=== PATIENT | female | born 1990 | race Two or more races ===

== ENCOUNTER 2024-07-11 13:51 | Outpatient (CLI) | payer MEDICAID, OTHER | END 2024-07-11 23:59 | disposition critical access hospital (66) | LOC: EMS 13:51 | DX: M54.2 Cervicalgia (principal); M54.50 Low back pain, unspecified; M79.604 Pain in right leg | CPT/HCPCS: A0425; A0427 ==

== ENCOUNTER 2024-07-11 14:31 | Emergency (ER) | payer MEDICAID, OTHER ==
--- NOTE | 2024-07-11 14:54 | ED Physician Documentation ---
History of Present Illness - Stated complaint Stated Complaint: BACK PX - Chief complaint Chief Complaint: Back Pain - Additonal information Additional information: 34-year-old female with known bulging disc presents emergency department via EMS for severe back pain. Patient says that she started new job at [employer] stop was not doing thing physically exertional but was having a hard time managing her pain which is what led her to call EMS. She says that she has been having urinary incontinence but she is able to control her urine enough to use a bedpan without any difficulty or incontinence here in the emergency department. She describes the urinary incontinence as an urgency sensation but she also reports that she was just recently diagnosed with pelvic inflammatory disease. She has no stool incontinence she says that she is able to feel sensation when she does need to void but sometimes she has a hard time controlling this. No fevers or chills no history of IV drug use no history of back surgery no recent fevers or chills. PD PAST MEDICAL HISTORY - Past Medical History Past Medical History: Yes Cardiovascular: None Respiratory: None Neuro: None Endocrine/Autoimmune: HyPOthyroidism GI: None CUSTODIAL MANAGER: None : None HEENT: None Psych: Depression Musculoskeletal: Chronic back pain Derm: None - Present Medications Home Medications: Ambulatory Orders Medication Instructions Recorded Confirmed methylPREDNISolone [Medrol Dose 1 each PO .PACKAGEINSTRUCTIONS 6 07/11/24 Pack] Days #1 each - Allergies Allergies/Adverse Reactions: Allergies Allergy/AdvReac Type Severity Reaction Status Date / Time amitriptyline AdvReac Unknown Verified 07/11/24 14:41 - Social History Does the pt smoke?: No Smoking Status: Never smoker Does the pt drink ETOH?: No Does the pt have substance abuse?: No - Immunizations Immunizations are current?: Yes - POLST Patient has POLST: No PD ED PE NORMAL - Vitals Vital signs reviewed: Yes - General General: Alert and oriented X 3, No acute distress, Well developed/nourished - HEENT HEENT: Atraumatic, PERRL, EOMI - Back Back: No CVA TTP - Derm Derm: Normal color, Warm and dry, No rash - Extremities Extremities: No edema, No calf tenderness / cord - Free text exam Free text exam: Neck and back are without deformity, external skin changes, or signs of trauma. Curvature of the cervical, thoracic, and lumbar spine are within normal limits. Bony features of the shoulders and hips are of equal height bilaterally. Pt is seen ambulating with a slight limp on the right lower extremity, she is able to get herself in and out of bed without difficulty. No tenderness noted on palpation of the spinous processes. Spinous processes are midline. Cervical, thoracic muscles are not tender and are without spasm. lumbar paraspinal tenderness to the right side. No discomfort is noted with flexion, extension, and [id number] rotation of the cervical spine, full range of motion is noted. Limited range of motion including flexion, extension, and [id number] rotation of the thoracic and lumbar spine are noted and with discomfort. Straight leg raise test is positive on right side. Sensation to the upper and lower extremities is normal bilaterally. No clonus is noted. Global Sourcing Manager strength is normal bilaterally. Dorsi/plantar flexion is normal bilaterally. PD ED PE EXPANDED - Rectal Rectal: Normal Tone, Virtualization Engineer present (DEXTER Bernabe) Results - Vitals Vitals: Vital Signs - 24 hr 07/11/24 07/11/24 07/11/24 14:38 18:43 19:37 Temperature 37.1 C 36.8 C Heart Rate 80 49 L 84 Respiratory 19 12 16 Rate Blood Pressure 133/90 H 113/79 122/68 O2 Saturation 100 99 98 Oxygen O2 Source Room air - Labs Labs: Laboratory Tests 07/11/24 07/11/24 15:42 15:42 Urine Color YELLOW Urine Clarity CLEAR Urine pH 7.0 Ur Specific Disputanta 1.010 Urine Protein NEGATIVE Urine Glucose (UA) NEGATIVE Urine Ketones NEGATIVE Urine Occult Blood LARGE H Urine Nitrite NEGATIVE Urine Bilirubin NEGATIVE Urine Urobilinogen 0.2 (NORMAL) Ur Leukocyte Esterase NEGATIVE Urine RBC 6-10 H Urine WBC 0-3 Ur Squamous Epith Cells RARE Squamous Urine Bacteria Rare Ur Microscopic Review INDICATED Urine Culture Comments NOT INDICATED Urine HCG, Qual NEGATIVE - Rads (name of study) Hip/pelvis x-ray Relevant Findings:: Final report received, EMP independent interpretation of test, Other (No acute bony abnormality or fractures no dislocation) PD Medical Decision Making - ED course ED course: This patient presents with back pain most consistent with sciatica. Differential diagnoses includes lumbago versus musculoskeletal spasm / strain versus sciatica. My benign back pain positive straight leg raise on right side. No back pain red flags on history or physical. Presentation not consistent with malignancy (lack of history of malignancy, lack of B symptoms), fracture (no trauma, no bony tenderness to palpation), cauda equina (no bowel or urinary incontinence/retention, no saddle anesthesia, no distal weakness), Rectal exam was complete as patient was originally seen that she was possibly having some urinary incontinence but she was able to use bedpan without any difficulty as well as bedside commode without any difficulty normal rectal tone with DEXTER Bernabe chaperoning, AAA, viscus perforation, osteomyelitis or epidural abscess (no IVDU, vertebral tenderness), renal colic, pyelonephritis (afebrile, no CVAT, no urinary symptoms). Because patient continued to complain of right hip pain and was refusing to walk I went ahead with x-ray of the right hip. After she is reassured that there is no fracture or acute bony finding in the right hip she was more willing to walk. She got out of bed with minimal support and was seen ambulatory stable on both feet with a slight limp. Patient was tearful and said that society does not want to help her and that she does not feel like she can keep working this way. She does not meet emergency precautions to do an MRI patient says that she knows that she has bulging disks and knows that she needs to get in with her primary care provider for physical therapy as well as a possible spinal doctor. She was given a front wheel walker to help with her pain pain was controlled with methylprednisolone and a Medrol pack was sent to [facility] preferred pharmacy she was also given a dose of IM Dilaudid and Toradol and Flexeril. She is able to maintain her sats without any difficulty at this point time she is safe for discharge return precautions given and it was stressed that she needs to follow-up with primary care provider outpatient for further evaluation of this. Urinalysis does have positive blood but this does not sound like renal calculi to me she says it feels like it is in her spinal/lumbar region that is radiating to her right side and given that she has positive straight leg test I have a very low suspicion that this is renal calculi despite her hematuria. Departure - Departure Disposition: 01 Home, Self Care Clinical Impression: Sciatica Instructions: ED Back Care Tips, ED Sciatica Prescriptions: methylPREDNISolone [Medrol Dose Pack] 1 each PO .PACKAGEINSTRUCTIONS 6 Days #1 each Comments: Thank you for trusting us with your care. Please expedite following up with primary care provider soon as possible outpatient I have sent a prescription of steroids to preferred pharmacy to help with your sciatica pain and I would work on trying to get in with a spinal doctor as well as Getting in with physical therapy to help with your ongoing back issues. Forms: Activity restrictions Discharge Date/Time: 07/11/24 19:37
[2024-07-11 15:53] LABS: BILIRUBIN,URINE NEGATIVE (NEGATIVE); GLUCOSE, URINE (UA) NEGATIVE (NEGATIVE); KETONES,URINE (UA) NEGATIVE (NEGATIVE); LEUKOCYTE ESTERASE, URINE NEGATIVE (NEGATIVE); NITRITE,URINE NEGATIVE (NEGATIVE); OCCULT BLOOD,URINE LARGE (NEGATIVE); PROTEIN,URINE NEGATIVE (NEGATIVE); UROBILINOGEN,URINE 0.2 (NORMAL) E.U./dL (NORMAL)
[2024-07-11 15:55] LABS: CLARITY,URINE CLEAR (CLEAR)
[2024-07-11 16:10] LABS: SQUAMOUS EPITHELIAL CELL,UR RARE Squamous (<= Few); WBC,URINE 0-3 /HPF (0-5)
[2024-07-11 16:11] LABS: BACTERIA,URINE Rare /HPF (None Seen)
[2024-07-11] MEDS: ACETAMINOPHEN 500 MG TABLET PO STA (16:18)
[2024-07-11] MEDS: KETOROLAC 30 MG/ML VIAL IM STA (16:18)
[2024-07-11] MEDS: CYCLOBENZAPRINE 10 MG TABLET PO STA (16:18)
--- NOTE | 2024-07-11 18:15 | XRAY Report ---
PROCEDURE: Hip w/Pelvis 2-3V RT INDICATIONS: right hip pain TECHNIQUE: 3 views of the hip were acquired. COMPARISON: None. FINDINGS: Bones: No fractures or dislocations. No evidence of avascular necrosis of femoral head. No suspicio us bony lesions. Soft tissues: No suspicious soft tissue calcifications or masses. IMPRESSION: No acute right hip fracture or dislocation. No evidence of avascular necrosis. Reviewed by: Issa Block MD on 07/11/2024 6:14 PM PDT Approved by: Issa Block MD on 07/11/2024 6:14 PM PDT Station ID: [id number]
[2024-07-11 19:04] LABS: HCG UR QUAL NEGATIVE
[2024-07-11] MEDS: HYDROmorphone 0.5 MG/0.5 ML SYRINGE IM STA (19:21)
[2024-07-11] MEDS: predniSONE 20 MG TABLET PO STA ×2 (19:26)
[2024-07-11] MEDS: HYDROmorphone 0.5 MG/0.5 ML SYRINGE IVP STA (19:36)
[2024-07-11 19:42] VITALS: BP 122/68; O2SAT 98
== END 2024-07-11 19:37 | disposition home or self-care (01) ==
LOC: EDBD → ED 14:31
DX: M54.30 Sciatica, unspecified side (principal); M25.551 Pain in right hip; R31.9 Hematuria, unspecified
CPT/HCPCS: 73502; 81001; 81025; 96372; 99284; A9270; J1170; J7512; 81003; 87086

== ENCOUNTER 2024-07-14 11:31 | Outpatient (CLI) | payer MEDICAID, OTHER | END 2024-07-14 23:59 | disposition EMS.NT | LOC: EMS 11:31 | DX: R10.2 Pelvic and perineal pain (principal) ==